=== PATIENT | female | born 1980 | race Caucasian/White ===

== ENCOUNTER 2021-12-09 16:11 | Emergency (ER) | payer BC ==
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
[2021-12-09 17:40] LABS: Urine Blood Negative (Negative); Urine Glucose Negative (Negative); Urine Protein Negative (Negative); Urine pH 5.5 (5.0-7.0)
[2021-12-09 19:25] LABS: Absolute Lymphocytes (CBC) 5.2 K/uL (0.7-4.9); Hematocrit 43.2 % (36.0-45.0); Lymphocytes % 63.3 % (15.3-44.8); MPV 8.7 fL (7.6-11.3); RBC Red Blood Cell Count 4.45 M/uL (3.86-4.86)
[2021-12-09 19:37] LABS: Bilirubin Total 0.2 mg/dL (0.2-1.0); Protein, Total 7.3 g/dL (6.4-8.2)
[2021-12-09 20:06] LABS: Blood Morphology Comment NOT SEEN (NOT SEEN); Platelet Estimate ADEQ; White Blood Cell Scan OK (OK)
--- NOTE | 2021-12-09 20:26 | EDPHYS ---
Physician Documentation [facility] Name: Paolo Mcguire Age: 41 yrs Sex: Female : 1980 Arrival Date: 12/09/2021 Time: 16:15 Bed 11 Private MD: ED Physician Danie Fuentes HPI: 12/09 18:15 This 41 yrs old Female presents to ER via Ambulatory with complaints of Fever, Headache.cp 18:15 The patient reports fever, that was measured at 104 degrees Fahrenheit. 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 - Social history:: Smoking status: Patient reports the use of cigarette tobacco products, smokes one-half pack cigarettes per day. ROS: 18:20 Constitutional: Negative for fever, poor PO intake. cp 18:20 Eyes: Negative for injury, pain, redness, and discharge. cp 18:20 ENT: Negative for sore throat, difficulty swallowing, difficulty handling secretions. 18:20 Cardiovascular: Negative for chest pain, palpitations. 18:20 Respiratory: Negative for shortness of breath, wheezing. 18:20 Abdomen/GI: Positive for abdominal distension, Negative for vomiting, diarrhea, constipation. 18:20 All other systems are negative. Exam: 18:25 Constitutional: The patient appears in no acute distress, alert, awake, cp non-diaphoretic, non-toxic, well developed, well nourished. 18:25 Head/Face: Normocephalic, atraumatic. cp 18:25 Neck: ROM/movement: is normal, is supple, without pain, no range of motions limitations, no meningismus. 18:25 Chest/axilla: Inspection: normal. 18:25 Cardiovascular: Rate: normal, Rhythm: regular, Edema: is not appreciated, JVD: is not appreciated. 18:25 Respiratory: the patient does not display signs of respiratory distress, Respirations: normal, no use of accessory muscles, no retractions, labored breathing, is not present, Breath sounds: are clear throughout, no decreased breath sounds. 18:25 Abdomen/GI: Inspection: abdomen appears normal, Palpation: soft, in all quadrants, mild abdominal tenderness, in the epigastric area, rebound tenderness, is not appreciated, involuntary guarding, is not appreciated. 18:25 Neuro: Orientation: to person, place \T\ time. Mentation: is normal. Vital Signs: 16:53 BP 113 / 78; Pulse 88; Resp 20; Temp 97; Pulse Ox 97% ; Weight 65.77 kg; Height 5 ft. 4 ko1 in. (162.56 cm); 19:56 BP 117 / 88; Pulse 71; Resp 20; Pulse Ox 100% ; tw5 16:53 Body Mass Index 24.89 (65.77 kg, 162.56 cm) ko1 MDM: 18:30 Differential diagnosis: viral Infection, bacterial infection, URI, gastroenteritis. 19:06 Patient medically screened. 20:25 Data reviewed: vital signs, nurses notes, lab test result(s), and as a result, I will cp discharge patient. 12/09 17:40 Order name: Urine Dipstick-Ancillary; Complete Time: 18:07 EDWV 12/09 17:43 Order name: Urine --Ancillary (enter results); Complete Time: 20:55 12/09 20:55 Interpretation: Reviewed. 12/09 18:07 Order name: Flu; Complete Time: 19:56 [facility] 12/09 18:09 Order name: Influenza Screen (A ; Complete Time: 19:05 EDWV 12/09 18:30 Order name: CBC with Diff; Complete Time: 20:15 [facility] 12/09 20:15 Interpretation: Normal except: MERLINE% 29.3; LYM% 63.3; LYMA 5.2. 12/09 18:30 Order name: Comprehensive Metabolic Panel; Complete Time: 19:56 [facility] 12/09 20:16 Interpretation: AST 92; ALT 88; ALB 3.0; GLOB 4.3; A/G 0.7; Reviewed. 12/09 18:30 Order name: Urine Dipstick-Ancillary (obtain specimen); Complete Time: 18:40 [facility] 12/09 20:07 Order name: CBC Smear Scan; Complete Time: 20:15 EDMS Administered Medications: No medications were administered Disposition Summary: 12/09/21 20:26 Discharge Ordered Location: Home cp Problem: new cp Symptoms: have improved cp Condition: Stable cp Diagnosis - Fever, unspecified cp - Headache cp - Abnormal results of liver function studies cp Followup: cp - With: Private Physician - When: 2 - 3 days - Reason: Recheck today's complaints Discharge Instructions: - Discharge Summary Sheet cp - Fever, Adult cp - General Headache Without Cause cp - Liver Function Tests cp Forms: - Medication Reconciliation Form cp - Thank You Letter cp - Antibiotic Education cp - Prescription Opioid Use cp Prescriptions: - dicyclomine 20 mg Oral Tablet - take 1 tablet by ORAL route 4 times per day; 30 tablet; Refills: 0, Product cp Selection Permitted - Zofran 4 mg Oral Tablet - take 1 tablet by ORAL route every 12 hours As needed; 20 tablet; Refills: 0, cp Product Selection Permitted Signatures: Dispatcher [employer] EDMS Danie Fuentes MD MD kdr Geovany Muller PA PA cp Brown, Sophia, PA PA sb3 Arlette Vargas RN RN ko1 Corrections: (The following items were deleted from the chart) 20:15 20:15 Normal except. cp cp
--- NOTE | 2021-12-09 20:26 | ER ---
Nurse's Notes [facility] Name: Paolo Mcguire Age: 41 yrs Sex: Female : 1980 Arrival Date: 12/09/2021 Time: 16:15 Bed 11 Private MD: Diagnosis: Fever, unspecified;Headache;Abnormal results of liver function studies Presentation: 12/09 16:53 Chief complaint: Patient states: had left ear infection, was on antibiotics for that ko1 for the past week. Has been having fever 102-104, abdomen is bloated and she states it is hot. Has been taking ibuprofen and tylenol. Has been also having pain behind left eye. Coronavirus screen: At this time, the client does not indicate any symptoms associated with coronavirus-19. Ebola Screen: No symptoms or risks identified at this time. Initial Sepsis Screen: Does the patient meet any 2 criteria? No. Patient's initial sepsis screen is negative. Does the patient have a suspected source of infection? No. Patient's initial sepsis screen is negative. Risk Assessment: Do you want to hurt yourself or someone else? Patient reports no desire to harm self or others. Onset of symptoms was December 09, 2021. 16:53 Method Of Arrival: Ambulatory ko1 16:53 Acuity: JUNE 4 ko1 Triage Assessment: 16:56 Headache History: Denies prior headaches. General: Appears in no apparent distress. ko1 Behavior is calm, cooperative, appropriate for age. Pain: Complains of pain in right ear and right base of the skull Pain currently is 8 out of 10 on a pain scale. Pain began 2-3 days ago. Also complains of no other associated symptoms. Neuro: No deficits noted. 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 - Social history:: Smoking status: Patient reports the use of cigarette tobacco products, smokes one-half pack cigarettes per day. Screenin:15 Abuse screen: Denies threats or abuse. Denies injuries from another. Nutritional kb3 screening: No deficits noted. Tuberculosis screening: No symptoms or risk factors identified. Fall Risk None identified. Assessment: 18:15 General: Appears in no apparent distress. comfortable, Behavior is calm, cooperative, kb3 Received care of pt from [facility]. No distress noted. Pt reports left ear pain/pressure and intermittent fever for approximately 7-10 days. States she has seen PCP and Urgent care twice and told her illness was viral. Took several days of antibiotics for ear infection but reports fever as high as 104 "that will not break." Temp 97 in triage.. Vital Signs: 16:53 BP 113 / 78; Pulse 88; Resp 20; Temp 97; Pulse Ox 97% ; Weight 65.77 kg; Height 5 ft. 4 ko1 in. (162.56 cm); 19:56 BP 117 / 88; Pulse 71; Resp 20; Pulse Ox 100% ; tw5 16:53 Body Mass Index 24.89 (65.77 kg, 162.56 cm) ko1 ED Course: 16:15 Patient arrived in ED. rg4 16:15 Danie Fuentes MD is Attending Physician. kdr 16:56 Triage completed. ko1 16:56 Arm band placed on left wrist. Patient placed in waiting room, Patient notified of wait ko1 time. 18:11 Goldie Vallejo, RN is Primary Nurse. kb3 18:15 Patient has correct armband on for positive identification. Bed in low position. Call kb3 light in reach. Side rails up X 1. 18:15 Warm blanket given. kb3 18:15 No provider procedures requiring assistance completed. kb3 18:40 Urine --Ancillary (enter results) Sent. kc6 19:06 Geovany Muller PA is PHCP. cp 20:56 Patient did not have IV access during this emergency room visit. tw5 Administered Medications: No medications were administered Medication: 18:15 VIS not applicable for this client. kb3 Outcome: 20:26 Discharge ordered by . cp 20:55 Discharged to home ambulatory. tw5 20:55 Condition: stable 20:55 Discharge instructions given to patient, family, Instructed on discharge instructions, follow up and referral plans. medication usage, Demonstrated understanding of instructions, follow-up care, medications, Prescriptions given X 2. 20:56 Patient left the ED. tw5 Signatures: Danie Fuentes MD MD kdr Page, Corey, PA PA cp Garcia, Rubi rg4 Cassie Elmore tw5 Treav Hernandez kc6 Goldie Vallejo, RN RN kb3 Sam, Arlette, RN RN ko1
[2021-12-09 21:54] VITALS: TEMP 97
[2021-12-09 21:56] VITALS: BP 117/88; O2SAT 100
== END 2021-12-09 20:56 | disposition home or self-care (01) ==
LOC: ER 16:11
DX: R51.9 Headache, unspecified (principal); R94.5 Abnormal results of liver function studies; Z20.822 Contact with and (suspected) exposure to COVID-19; F17.210 Nicotine dependence, cigarettes, uncomplicated
CPT/HCPCS: 85025; 36415; 81025; 81003; 80053; 87804 ×2; 99283; U0003